=== PATIENT | male | born 1980 | race Caucasian/White ===

== ENCOUNTER 2017-04-16 14:47 | Emergency (ER) | payer OTHER ==
[2017-04-16] MEDS ORDERED: Ibuprofen 800 MG Tab PO ONE (15:12)
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
[2017-04-16 16:34] VITALS: BP 136/73
--- NOTE | 2017-04-19 11:46 | CR ---
EXAM DATE: 04/16/17 PATIENT'S AGE: 36 Patient: CLARKE ALICIA Facility: [place], [place] Site . Site : [id number] Study: XRay Chest Left RIBS [id number]/29/2017 3:42:36 PM Ordering Physician: Timmy Ziegler Final Report: HISTORY: Injury. FINDINGS: Two PA chest and 3 views of the left ribs demonstrate a normal cardiac silhouette. Pulmonary vasculature is free of cephalization. No lobar consolidation, pleural effusion or pneumothorax is seen. A BB marker is seen overlying the left lower thorax. There is a nondisplaced fracture seen through the anterior 7th rib near the costochondral junction. IMPRESSION: Non-displaced fracture seen through the anterior left 7th rib near the costochondral junction. No pneumothorax. Dictated by Leonora Mayfield MD @ 04/16/2017 4:12:00 PM Dictated by: Leonora Mayfield MD @ 04/16/2017 16:12:21 (Electronic Signature) Report Signed by Proxy. [facility]
== END 2017-04-16 16:27 | disposition home or self-care (01) ==
LOC: MW.ED 14:47
DX: S20.212A Contusion of left front wall of thorax, initial encounter (principal); W19.XXXA Unspecified fall, initial encounter; Y04.0XXA Assault by unarmed brawl or fight, initial encounter
CPT/HCPCS: 71101; 99283; A9270; 99282